=== PATIENT | female | born 1965 | race Caucasian/White ===

== ENCOUNTER → 2018-10-20 | Emergency (ER) | payer OTHER, MEDICAID ==
[2018-10-20] MEDS: IPRATROPIUM (NEB) 0.5 MG/2.5 ML AMP HHN (03:46)
[2018-10-20] MEDS: ALBUTEROL 0.083% (NEB) 2.5 MG/3 ML AMP HHN (03:46)
[2018-10-20] MEDS: predniSONE 20 MG TAB PO (04:22)
== END | disposition home or self-care (01) ==
LOC: E/R 03:18
DX: J45.901 Unspecified asthma with (acute) exacerbation (principal); F17.210 Nicotine dependence, cigarettes, uncomplicated
CPT/HCPCS: 71045; 93005; 94664; 99284-25